=== PATIENT | female | born 1955 | race Caucasian/White ===

== ENCOUNTER → 2017-04-21 | Day surgery (SDC) | payer BC ==
[2017-04-11 14:52] VITALS: BMI 47.0
[2017-04-16 09:44] VITALS: Ht 154.9 cm; Wt 115.0 kg
--- NOTE | 2017-04-16 09:51 | PAT Medication Instructions ---
Service Date Apr 16, 2017. Current Home Medication List Aspirin (Aspirin Ec), 81 MG PO DAILY Celecoxib (Celebrex), 1 CAP PO QAM Doxycycline Monohydrate (Monodox), 100 MG PO DAILY Pediatric Multiple Vitamin W/ (Gummi Bear Multivitamin/M), 1 TAB PO DAILY Timolol Maleate (Ophth) (Timoptic), 1 DROP OPB QAM Medication Instructions For Your Scheduled Surgery - Per surgeon's instructions: Timolol Maleate (Ophth) (Timoptic), 1 DROP OPB QAM - Hold the following medications the morning of surgery: Aspirin (Aspirin Ec), 81 MG PO DAILY Celecoxib (Celebrex), 1 CAP PO QAM Doxycycline Monohydrate (Monodox), 100 MG PO DAILY Pediatric Multiple Vitamin W/ (Gummi Bear Multivitamin/M), 1 TAB PO DAILY *nothing to eat or drink after midnight* If you have any questions please call us at [phone] or [phone] or [phone]
[~2017-04-21] VITALS: Ht 154.9 cm; Wt 115.0 kg
[~2017-04-21] MED LIST: 500ML BSSPLUS 0.5ML EPI1:1000 IRRIG ONE; ACETAMINOPHEN 325 MG TAB PO PRN; ASPI81TA28 PO; ATROPINE SULFATE 0.1 MG/ML 5ML SYR IV PRN; ATROPINE SULFATE 1% OP SOLN 2 ML BTL ONE; BSS FLUSH ONE; BUPIVACAINE HCL 0.75% 10 ML AMP/VIAL ONE; CEFAZOLIN SOD 1 GM VIAL ONE; CLB100 PO; DEXAMETHASONE SOD INJ 4 MG/ML VIAL ONE; DOXY100C76 PO; EpHEDrine SULFATE INJ 50 MG/ML AMP IV PRN; EpINEphrine INJ 1MG/ML AMP 1 MG/ML AMP ONE; FENTANYL CITRATE INJ 50 MCG/1 ML 2 ML VIAL IV PRN; HYALURONIDASE HUMAN 150 UNIT/ML INJ ONE; INDOCYANINE GREEN 25 MG/10 ML ONE; LACTATED RINGER'S 1000ML 500 ML IV SCH; LIDOCAINE MPF 4% INJ INJ ONE; MIDAZOLAM HCL 1 MG/ML 2ML VIAL ONE; NEOMYCIN/POLYMYX/DEXAMETH OP OINT PER APP CHARGE ONE; OCUCOAT 1 ML SOLN IO ONE; ONDANSETRON INJ 2 MG/ML 2 ML VIAL IV PRN; PEDICHW34 PO; POVIDONE-IODINE OP SOLN (SURGERY CNTR CHARGING ONLY) ONE; PROPARACAINE 0.5% OP SOLN PER DROP CHARGE OPR SCH; PROPOFOL IV EMULSION 10 MG/ML 20 ML VIAL IV ONE; TIMO0.2528 OPB; TIMOLOL MALEATE 0.5% OP SOLN PER DROP CHARGE ONE; TRIAMCINOLONE ACETONIDE OPHTH 40 MG/ML VIAL STERILE IO ONE
[2017-04-21] MEDS: PHENYLEPHRINE HCL 2.5% OP SOLN PER DROP CHARGE OPR SCH ×2 (07:32→07:37)
[2017-04-21] MEDS: TROPICAMIDE 1% OP SOLN PER DROP CHARGE OPR SCH ×2 (07:33→07:38)
--- NOTE | 2017-04-21 08:34 | History & Physical Bridge - SC ---
H&P Re-Evaluation Bridge Note: Pt has a macular hole in right eye and is here for vitrectomy of the right eye. I have examined the patient, reviewed the History & Physical and in the interval since the performance of the History & Physical I have noted the following changes of clinical significance: No changes noted
--- NOTE | 2017-04-21 09:39 | [facility] Operative Report ---
Operative Report Date of Service Apr 21, 2017. Operative Report PREOPERATIVE DIAGNOSIS: Macular hole, right eye. ICD10 CODE: H35.341 POSTOPERATIVE DIAGNOSIS: same. PROCEDURE: 1. Pars plana vitrectomy, 23 gauge. 2. Membrane peeling of the internal limiting membrane. 3. Fluid-air exchange. 4. Air-gas exchange w/ SF6 20 %. All to the right eye. CPT CODE: 39640 SURGEON: Maycol Cantu D.O. COMPLICATIONS: None. ESTIMATED BLOOD LOSS: None. SPECIMENS: None. ANESTHESIA: Retrobulbar block and MAC. INDICATIONS FOR PROCEDURE: The patient has a macular hole that is visually significant. Vitrectomy surgery is indicated to decrease risk of vision loss and potentially improve vision. CONSENT: The risks, benefits and alternatives were discussed with the patient including but not limited to decreased visual acuity, failure to achieve desired results, loss of the eye, infection, pain, glaucoma, lens changes, retinal tears, retinal detachment, the need for more procedures, drooping of the eyelid, blindness, and double vision. The patient is aware of risks and consents to the surgery. Consent is signed and on the chart. OPERATION AND FINDINGS: The patient was brought to the operating room where the patient was identified by name, date, and medical record number. The surgical site was confirmed with the informed written consent. The patient was sedated by the anesthesiology team after which a 50:50 mixture of 4% lidocaine and 0.75% bupivacaine with hyaluronidase was administered in a standard retrobulbar fashion. A total of 4 ml was administered without difficulty. The patient was then prepped and draped in the usual sterile manner for retinal surgery. A wire lid speculum was placed and an Rubens 23-gauge trocar cannula system was employed. The inferior temporal trocar cannula was first placed in an angled fashion 3.75mm posterior to the surgical limbus and the infusion cannula was inserted into this cannula after which the intravitreal position was verified prior to turning the infusion on. Two more trocar cannulas were then inserted in an angled fashion, one in the superior temporal, and one in the superior nasal quadrant both 3.75mm posterior to the surgical limbus. A light pipe and vitrector were then introduced into the eye and the BIOM wide angle viewing system was brought into place. Posterior inspection revealed prior laser scars from previously repaired retinal detachment. There was also noted a large macular hole w/ overlying epiretinal membrane. Next 0.05ml of indocyanine green was placed over the macular surface to stain the internal limiting membrane. This was washed from the eye after 10 seconds. At this point a flat contact lens was placed on the surface of the eye and a flex scraper and ILM forceps were then used to gently peel the internal limiting membrane surrounding the macular hole without difficulty. At this point scleral depression was performed for 360 degrees and no retinal tears or detachments were noted. A soft tip cannula was used to perform a fluid- air exchange. Next, SF6 20% was injected in through the infusion cannula for a complete gas fill of the eye. The trocar cannulas were then removed and found to be air tight. The intraocular pressure was found to be within normal limits by palpation and subconjunctival injections of Kefzol and dexamethasone were administered inferiorly and superiorly. The wire lid speculum was removed. Maxitrol and timolol were applied to the surface of the eye. A light patch and shield were taped over the surface of the eye and the patient left the Operating Room in stable condition having tolerated the procedure well. DISPOSITION: A gas bracelet was placed on the patients wrist. The patient was instructed to maintain a face down position overnight. The patient is to call immediately if there are any problems overnight. I attest to the content of the Intraoperative Record and any orders documented therein. Any exceptions are noted below.
--- NOTE | 2017-04-21 09:40 | Discharge Instructions-SurgCtr ---
Discharge Instructions Date of Service Apr 21, 2017. Visit Reason for Visit: Right Eye Macular Hole Discharge Discharge Diagnosis / Problem: same Discharge Goals Goal(s): Improve function Activity Recommendations Activity Limitations: per Instructions/Follow-up section Anesthesia . Post Anesthesia Instructions: If you have had General Anesthesia or IV Sedation: * Do not drive today. * Resume driving when surgeon permits. * Do not make important decisions or sign legal documents today. * Call surgeon for: 1. Temperature elevations greater than 101 degrees F. 2. Uncontrollable pain. 3. Excessive bleeding. 4. Persistent nausea and vomiting. 5. Medication intolerance (nausea, vomiting or rash). * For nausea and vomiting use only clear liquids such as: tea, soda, bouillon until nausea subsides, then gradually increase diet as tolerated. * If you have any concerns or questions, call your surgeon's office. If physician is unavailable and it is an emergency, call 911 or go to the nearest emergency room. . Diet Recommendations Home Diet: resume previous diet Procedures Procedures Performed: Right Eye 23 Gauge Vitrectomy, Membrane Peel, SF6 Gas Insertion Pending Studies Studies pending at discharge: no Medical Emergencies . Who to Call and When: Medical Emergencies: If at any time you feel your situation is an emergency, please call 911 immediately. . Non-Emergent Contact Non-Emergency issues call your: Secretary Of State . . "Provider Documentation" section prepared by Maycol Cantu. .
--- NOTE | 2017-04-21 09:53 | Anesthesia Progress Nt - [facility] ---
Anesthesia Post Op Note Date & Time Apr 21, 2017 at 09:52 Vital Signs Pain Intensity: 0 Vital Signs Past 12 Hours Date Time Temp Pulse Resp B/P (MAP) Pulse Ox O2 Delivery O2 Flow Rate FiO2 04/21/17 09:33 36.4 72 14 150/83 (105) 97 Room Air 04/21/17 07:22 36.5 80 22 155/89 (111) 98 Room Air Notes Mental Status: alert / awake / arousable, participated in evaluation Pt Amnestic to Procedure: No Nausea / Vomiting: adequately controlled Pain: adequately controlled Airway Patency, RR, SpO2: stable & adequate BP & HR: stable & adequate Hydration State: stable & adequate Anesthetic Complications: no major complications apparent Non distressing recall as discussed preoperatively
[2017-04-21 09:56] VITALS: BP 157/81; PULSE 72; O2SAT 95
== END | disposition home or self-care (01) ==
LOC: X.SURG 07:09
PROVIDERS: ATTEND Ophthalmology
DX: H35.341 Macular cyst, hole, or pseudohole, right eye (principal); E78.2 Mixed hyperlipidemia; K51.211 Ulcerative (chronic) proctitis with rectal bleeding; E66.01 Morbid (severe) obesity due to excess calories; Z68.42 Body mass index [BMI] 45.0-49.9, adult; M15.9 Polyosteoarthritis, unspecified; Z79.82 Long term (current) use of aspirin; Z79.899 Other long term (current) drug therapy